=== PATIENT | male | born 1955 | race Caucasian/White ===

== ENCOUNTER → 2018-03-27 09:19 | Outpatient (CLI) | payer OTHER, SELFPAY ==
[2018-03-27 11:21] LABS: Cholesterol 169 mg/dL (140-199); HDL Cholesterol 55 mg/dL (40-60); LDL Cholesterol Calculated 84 mg/dL (<100); Triglycerides 148 mg/dL (35-150)
== END ==
PROVIDERS: Family Provider Internal Medicine; PCP Internal Medicine; Visit Provider Internal Medicine
DX: E78.00 Pure hypercholesterolemia, unspecified (principal); I10 Essential (primary) hypertension
CPT/HCPCS: 36415; 80061

== ENCOUNTER → 2018-04-17 11:21 | Outpatient (CLI) | payer OTHER, SELFPAY ==
[2018-04-17 13:07] LABS: HEMOLYSIS < 15 (0-50); Magnesium 2.1 mg/dL (1.6-2.3); Potassium 5.2 mmol/L (3.4-5.1)
[2018-04-17 13:39] LABS: Thyroid Stimulating Hormone 1.12 uIU/mL (0.47-4.68)
== END ==
PROVIDERS: PCP Internal Medicine; Visit Provider Internal Medicine
DX: I48.91 Unspecified atrial fibrillation (principal)
CPT/HCPCS: 36415; 83735; 84132; 84443

== ENCOUNTER → 2018-04-18 08:08 | Outpatient (CLI) | payer OTHER, SELFPAY ==
--- NOTE | 2018-04-18 | DI.ECHO.S_ITS ---
[facility] +---------+ : : [address] : [address] : : : : [id number] : : : : Phone: [phone]+ Echocardiogram Report + + :Name: AKBAR EDGAR Study Date: 04/18/2018 Height: 72 in : :[facility] Weight: 236 lb : : Gender: Male BSA: 2.3 m2 : :: 1955 Age: 62 yrs BP: 112/68 mmHg: :Reason For Study: Atrial fibrillation : : Performed By: Keli Vick : :Referring: INNA CARR : + + Interpretation Summary The left ventricle is normal in size. Left ventricular systolic function is normal without focal wall motion abnormalities. The ejection fraction is estimated to be 55-60%. Diastolic function could not be accurately assessed due to atrial fibrillation. The right ventricle grossly appears normal in size with probable normal systolic function. The right ventricular systolic pressure is estimated at 24 mmHg assuming a right atrial pressure of 3 mm Hg. The left atrium is moderately dilated. Right atrial size is normal. There is mild aortic regurgitation. There is no other significant valvular heart disease. The ascending aorta is mildly enlarged. Procedure: A two-dimensional transthoracic echocardiogram with color flow and Doppler was performed. The study quality was technically adequate. There is no prior echocardiogram noted for this patient. The patient was in atrial fibrillation with heart rates between 55-71 bpm during the exam. Left Ventricle: The left ventricle is normal in size. There is normal left ventricular wall thickness. Left ventricular systolic function is normal without focal wall motion abnormalities. The ejection fraction is estimated to be 55-60%. Diastolic function could not be accurately assessed due to atrial fibrillation. Right Ventricle: The right ventricle grossly appears normal in size with probable normal systolic function. Atria: The left atrium is moderately dilated. Right atrial size is normal. The interatrial septum is intact with no evidence for an atrial septal defect. Mitral Valve: The mitral valve is grossly normal. There is trace mitral regurgitation. Aortic Valve: The aortic valve opens well. There is no aortic valve stenosis. There is mild aortic regurgitation. Tricuspid Valve: The tricuspid valve is normal in structure and function. There is trace tricuspid regurgitation. The right ventricular systolic pressure is estimated at 24 mmHg assuming a right atrial pressure of 3 mm Hg. Pulmonic Valve: The pulmonic valve is not well visualized. There is a trace or physiologic amount of pulmonic regurgitation. There is no other significant valvular heart disease. Great Vessels: The aortic root is normal size. The ascending aorta is mildly enlarged. The aortic arch is normal in size. The IVC is of normal diameter and collapses greater than 50% with a sniff. This suggests a low right atrial pressure of 3 mm Hg. Pericardium/ Pleura There is no pericardial effusion. There is no pleural effusion. MMode/2D Measurements & Calculations LVIDd: 5.0 cm Ao root diam: 3.6 cm LVIDs: 3.4 cm Aortic Jxn: 2.6 cm FS: 30.6 % asc Aorta Diam: 3.8 cm IVSd: 0.92 cm Ao Arch Diam (Prox Trans): 3.1 cm LVPWd: 0.85 cm LV bowles. diameter/BSA (cm/m^2): 2.2 LV sys. diameter/BSA (cm/m^2): 1.5 LA dimension: 4.5 cm RA long axis: 5.5 cm LA A2 area: 25.8 cm2 RA area: 20.2 cm2 LA A4 area: 28.5 cm2 RA vol: 63.0 ml LA length (vol): 5.8 cm RA : 27.6 ml/m2 LA vol: 106.9 ml IVC diam: 1.6 cm LA vol index: 46.8 ml/m2 RVDd major: 5.6 cm RVD1 (basal): 4.0 cm RVD2 (mid): 3.4 cm Doppler Measurements & Calculations Ao V2 max: 119.0 cm/sec AI P1/2t: 677.6 msec Ao V2 mean: 73.4 cm/sec AI dec slope: 145.8 cm/sec2 Ao max P.7 mmHg Ao mean P.6 mmHg Ao V2 VTI: 24.4 cm Med Peak E' Alexis: 8.2 cm/sec TR max alexis: 231.0 cm/sec Lat Peak E' Alxeis: 12.8 cm/sec TR max P.3 mmHg MV P1/2t: 57.9 msec PA V2 max: 69.8 cm/sec PA V2 mean: 48.4 cm/sec PA mean P.1 mmHg PA Accel Time: 0.13 sec MV V2 mean: 42.3 cm/sec MV P1/2t max alexis: 89.5 cm/sec MV mean P.0 mmHg MVA(P1/2t): 3.8 cm2 MV V2 VTI: 12.2 cm Reading Physician:KATHY
== END ==
PROVIDERS: PCP Internal Medicine; Visit Provider Internal Medicine
DX: I35.1 Nonrheumatic aortic (valve) insufficiency (principal); I48.91 Unspecified atrial fibrillation
CPT/HCPCS: 93306

== ENCOUNTER → 2018-07-20 08:07 | Outpatient (CLI) | payer OTHER, SELFPAY ==
--- NOTE | 2018-07-20 | DI.NM.S_ITS ---
PROCEDURE: NM GILBERTO PERF SPECT REST & STR Rest and exercise myocardial perfusion SPECT with gated imaging and ejection fraction RADIOPHARMACEUTICAL: 25.4 mCi Tc-99m sestamibi IV at rest and 25.3 mCi Tc-99m sestamibi IV at peak exercise. A two day-protocol was performed. INDICATIONS: atrial fibrillation TECHNIQUE: Radiopharmaceutical was injected at peak stress test, and also at rest. SPECT images were obtained. SPECT myocardial perfusion images were displayed in short axis, horizontal long axis, and vertical long axis views. Gated images were reviewed using Playcez software. COMPARISON: None. CARDIAC STRESS: A standard Aditya treadmill exercise tolerance test was performed by the patient under the supervision of an attending staff. The patient exercised for 5 minutes and 24 seconds; functional aerobic impairment (BETTINA) is +35%. Hemodynamic data: There is normal blood pressure and heart rate response to exercise stress. Patient achieved 110% of maximum predicted heart rate at peak exercise. Symptoms: Patient denied chest pain during exercise. EKG: Atrial fibrillation present throughout the study. No diagnostic EKG changes of ischemia. FINDINGS: Raw data: There is good myocardial labeling by radiotracer. No significant motion artifacts. Left ventricle function: Gated images demonstrate normal left ventricle wall thickening. No segmental wall motion abnormality. No transient ischemic dilation; TID is 0.94 (normal less than 1.3). The left ventricle resting end-diastolic volume is 149 mL. Left ventricle stress ejection fraction is 60%; normal values are above 45%. Myocardial perfusion: There is a moderately intense reversible defect in the distal anterior wall consistent with ischemia in the LAD territory. There is a fixed mildly intense defect in the inferior wall that persists on prone imaging, consistent with prior infarction. SSS 9, SRS 3. IMPRESSION: Abnormal stress test consistent with ischemia in the distal anterior wall and infarction in the inferior wall. 1) Abnormal perfusion images. There is a moderately intense reversible defect in the distal anterior wall consistent with ischemia in the LAD territory. There is a fixed mildly intense defect in the inferior wall that persists on prone imaging, consistent with prior infarction. SSS 9, SRS 3. 2) Normal left ventricular size, wall motion, and systolic function (EF 60%). 3) No ECG evidence of ischemia. Atrial fibrillation present througout the study. 4) No angina during the study. 5) Moderately reduced exercise tolerance (7.0 METs, BETTINA +35%). Target heart rate achieved. 6) No prior nuclear stress test available for comparison. Dictated by: Dusty Clay MD on 07/21/2018 at 13:23 Approved by: Dusty Clay MD on 07/21/2018 at 13:29
--- NOTE | 2018-07-20 09:21 | PM.TREADMILL ---
Cardiac Stress Test Report Referral & Results Date Patient Seen: 07/20/18 Time Patient Seen: 09:21 Requesting provider: Abelardo Garibay Indication: Atrial fibrillation Rest ECG: AFib, with controlled ventricular response, otherwise unremarkable Procedure Note: Today following both written and verbal informed consent the patient was exercised according to a standard Aditya protocol patient went for a total of 5 min 24 sec achieving a maximum heart rate of 148 maximum systolic blood pressure of 180. This is approximately 7.0 METS. Exercise was terminated at this point because of targets having been met. Patient was also given Cardiolite through a previously started Hep-Lock IV by the nuclear medicine pet ct technologist approximately 1 minute prior to the cessation of exercise. Due to technical difficulties it was completely impossible to follow ST segments or heart rate during activity due to severe motion artifact. However upon immediate cessation of activity there was no evidence of ST segment change. Maximum heart rate was calculated at that point at 148 No dysrhythmias were identified Functional aerobic impairment rated 30% in sedentary scale although patient was stopped early on the treadmill because of having met heart rate and blood pressure targets he probably could continued longer There was a rapid reduction heart rate with cessation of activity quickly achieving a heart rate of less than 100 less than 90 sec into recovery Impression: No clear evidence of ischemia although limited somewhat for technical reasons as above Perfusion imaging to be reported separately Probably somewhat limited exercise capacity as well Please note: Actual ECG tracings can be found in the PACS system.
== END ==
PROVIDERS: PCP Internal Medicine; Visit Provider Internal Medicine
DX: I48.91 Unspecified atrial fibrillation (principal)
CPT/HCPCS: 78452; 93016; 93017; 93018; A9502

== ENCOUNTER → 2018-08-31 09:02 | Outpatient (CLI) | payer OTHER, SELFPAY ==
[2018-08-31 10:41] LABS: Alanine Aminotransferase 56 IU/L (21-72); Aspartate Aminotransferase 40 IU/L (17-59); Cholesterol 82 mg/dL (140-199); HDL Cholesterol 34 mg/dL (40-60); LDL Cholesterol Calculated 32 mg/dL (<100); Triglycerides 79 mg/dL (35-150)
== END ==
PROVIDERS: PCP Internal Medicine; Visit Provider Internal Medicine
DX: E78.00 Pure hypercholesterolemia, unspecified (principal)
CPT/HCPCS: 36415; 80061; 84450; 84460

== ENCOUNTER → 2018-12-14 12:29 | Outpatient (CLI) | payer OTHER, SELFPAY ==
[2018-12-14 13:44] LABS: Hematocrit 43.5 % (41-53); Hemoglobin 14.6 g/dL (13.5-17.5)
== END ==
PROVIDERS: PCP Internal Medicine; Visit Provider Physician Assistant
DX: I48.91 Unspecified atrial fibrillation (principal)
CPT/HCPCS: 36415; 85014; 85018

== ENCOUNTER → 2018-12-21 13:20 | Outpatient (CLI) | payer OTHER, SELFPAY ==
[2018-12-21 13:56] LABS: Hematocrit 45.1 % (41-53); Hemoglobin 15.2 g/dL (13.5-17.5)
== END ==
PROVIDERS: PCP Internal Medicine; Visit Provider Physician Assistant
DX: I48.91 Unspecified atrial fibrillation (principal)
CPT/HCPCS: 36415; 85014; 85018

== ENCOUNTER → 2019-01-01 11:53 | Outpatient (CLI) | payer OTHER, SELFPAY ==
[2019-01-01 13:57] LABS: Blood Urea Nitrogen 16 mg/dL (9-20); Calcium 9.5 mg/dL (8.4-10.2); Carbon Dioxide 29 mmol/L (22-32); Chloride 99 mmol/L (98-107); Estimated Glomerular Filt Rate > 60.0 mL/min (>60); Glucose 84 mg/dL (80-110); HEMOLYSIS < 15 (0-50); Potassium 4.9 mmol/L (3.4-5.1); Sodium 139 mmol/L (137-145)
== END ==
PROVIDERS: PCP Internal Medicine; Visit Provider Physician Assistant
DX: I48.0 Paroxysmal atrial fibrillation (principal)
CPT/HCPCS: 36415; 80048

== ENCOUNTER → 2019-01-16 09:00 | Outpatient (CLI) | payer OTHER, SELFPAY ==
[2019-01-16 09:50] LABS: Add Manual Diff / Slide Review NO; Basophils Absolute Auto 0 /uL (0-100); Basophils Percent Auto 0.3 % (0-2); Eosinophils Absolute Auto 100 /uL (0-450); Eosinophils Percent Auto 1.2 % (2-4); Hematocrit 42.6 % (41-53); Hemoglobin 14.3 g/dL (13.5-17.5); Lymphocytes Absolute Auto 2500 /uL (1100-4500); Lymphocytes Percent Auto 25.2 % (25-40); Mean Corpuscular HGB Conc 33.7 % (30-36); Mean Corpuscular Hemoglobin 32.1 PG (26-34); Mean Corpuscular Volume 95.3 fL (80-100); Monocytes Absolute Auto 800 /uL (0-900); Monocytes Percent Auto 8.1 % (3-14); Neutrophils Absolute Auto 6500 /uL (1500-7000); Neutrophils Percent Auto 65.2 % (50-75); Platelet Count 326 X10^3/uL (150-400); Red Blood Cell Count 4.47 X10^6/uL (4.5-5.9); Red Cell Distribution Width 13.2 % (11.6-14.8)
[2019-01-16 10:24] LABS: HEMOLYSIS < 15 (0-50); Iron 61 ug/dL (49-181)
[2019-01-16 10:36] LABS: Percent Iron Saturation 17 % (20-50); Total Iron Binding Capacity 354 ug/dL (261-462); Transferrin 249 mg/dL (206-381)
[2019-01-16 10:57] LABS: Prostate Specific Antigen Scrn 1.82 ng/mL (0.1-4.0)
== END ==
PROVIDERS: PCP Internal Medicine; Visit Provider Internal Medicine
DX: E78.00 Pure hypercholesterolemia, unspecified (principal); I48.91 Unspecified atrial fibrillation; D64.9 Anemia, unspecified
CPT/HCPCS: 36415; 82728; 83540; 83550; 85025; G0103

== ENCOUNTER → 2019-05-14 08:35 | Outpatient (CLI) | payer OTHER, SELFPAY ==
[2019-05-14 09:23] LABS: Add Manual Diff / Slide Review NO; Basophils Absolute Auto 0 /uL (0-100); Basophils Percent Auto 0.6 % (0-2); Eosinophils Absolute Auto 100 /uL (0-450); Eosinophils Percent Auto 2.2 % (2-4); Hematocrit 42.7 % (41-53); Hemoglobin 14.5 g/dL (13.5-17.5); Lymphocytes Absolute Auto 1500 /uL (1100-4500); Lymphocytes Percent Auto 23.7 % (25-40); Mean Corpuscular Hemoglobin 32.2 PG (26-34); Mean Corpuscular Volume 94.8 fL (80-100); Monocytes Absolute Auto 500 /uL (0-900); Neutrophils Absolute Auto 4400 /uL (1500-7000); Neutrophils Percent Auto 66.5 % (50-75); Platelet Count 271 X10^3/uL (150-400); Red Cell Distribution Width 14.1 % (11.6-14.8); White Blood Cell Count 6.5 X10^3/uL (4.5-11.0)
[2019-05-14 09:56] LABS: HEMOLYSIS < 15 (0-50); Iron 134 ug/dL (49-181)
[2019-05-14 10:06] LABS: Percent Iron Saturation 40 % (20-50); Total Iron Binding Capacity 333 ug/dL (261-462); Transferrin 276 mg/dL (206-381)
[2019-05-14 10:25] LABS: Prostate Specific Antigen Scrn 1.51 ng/mL (0.1-4.0)
[2019-05-14 10:29] LABS: Ferritin 49.6 ng/mL (17.9-464)
== END ==
PROVIDERS: PCP Internal Medicine; Visit Provider Internal Medicine
DX: E78.00 Pure hypercholesterolemia, unspecified (principal); I48.91 Unspecified atrial fibrillation; D64.9 Anemia, unspecified
CPT/HCPCS: 36415; 82728; 83540; 83550; 85025; G0103

== ENCOUNTER → 2019-10-04 15:13 | Outpatient (ROUT) | payer OTHER, SELFPAY ==
[2019-10-04 15:46] LABS: Alanine Aminotransferase 72 IU/L (<50); Albumin 4.4 g/dL (3.5-5.0); Albumin Globulin Ratio 1.6 (1.0-2.8); Alkaline Phosphatase 94 U/L (38-126); Aspartate Aminotransferase 43 IU/L (17-59); Bilirubin Total 0.8 mg/dL (0.2-1.3); Blood Urea Nitrogen 14 mg/dL (9-20); Calcium 9.3 mg/dL (8.4-10.2); Carbon Dioxide 30 mmol/L (22-32); Chloride 101 mmol/L (98-107); Cholesterol 152 mg/dL (140-199); Estimated Glomerular Filt Rate > 60.0 mL/min (>60); Globulin 2.7 g/dL (1.7-4.1); Glucose 104 mg/dL (80-110); HDL Cholesterol 58 mg/dL (40-60); HEMOLYSIS < 15 (0-50); LDL Cholesterol Calculated 69 mg/dL (<100); Potassium 4.2 mmol/L (3.4-5.1); Sodium 139 mmol/L (137-145); Total Protein 7.1 g/dL (6.3-8.2); Triglycerides 126 mg/dL (35-150)
== END ==
PROVIDERS: PCP Internal Medicine; Visit Provider Internal Medicine
DX: I10 Essential (primary) hypertension (principal); E78.00 Pure hypercholesterolemia, unspecified
CPT/HCPCS: 80053; 80061

== ENCOUNTER → 2020-03-19 09:27 | Outpatient (CLI) | payer OTHER, SELFPAY ==
[2020-03-19 10:58] LABS: Alanine Aminotransferase 45 IU/L (<50); Albumin 4.4 g/dL (3.5-5.0); Albumin Globulin Ratio 1.8 (1.0-2.8); Alkaline Phosphatase 92 U/L (38-126); Aspartate Aminotransferase 44 IU/L (17-59); Bilirubin Total 0.7 mg/dL (0.2-1.3); Blood Urea Nitrogen 13 mg/dL (9-20); Calcium 9.5 mg/dL (8.4-10.2); Carbon Dioxide 29 mmol/L (22-32); Chloride 102 mmol/L (98-107); Cholesterol 93 mg/dL (140-199); Estimated Glomerular Filt Rate > 60.0 mL/min (>60); Globulin 2.5 g/dL (1.7-4.1); Glucose 102 mg/dL (80-110); HDL Cholesterol 33 mg/dL (40-60); HEMOLYSIS < 15 (0-50); LDL Cholesterol Calculated 42 mg/dL (<100); Potassium 4.3 mmol/L (3.4-5.1); Sodium 139 mmol/L (137-145); Total Protein 6.9 g/dL (6.3-8.2); Triglycerides 91 mg/dL (35-150)
== END ==
PROVIDERS: PCP Internal Medicine; Referring Provider Internal Medicine; Visit Provider Internal Medicine
DX: I10 Essential (primary) hypertension (principal)
CPT/HCPCS: 36415; 80053; 80061

== ENCOUNTER → 2020-04-01 09:02 | Outpatient (CLI) | payer OTHER, SELFPAY ==
[2020-04-01 10:14] LABS: Add Manual Diff / Slide Review NO; Basophils Absolute Auto 0 /uL (0-100); Basophils Percent Auto 0.4 % (0-2); Eosinophils Absolute Auto 100 /uL (0-450); Eosinophils Percent Auto 2.5 % (2-4); Hematocrit 41.2 % (41-53); Hemoglobin 14.3 g/dL (13.5-17.5); Lymphocytes Absolute Auto 1900 /uL (1100-4500); Lymphocytes Percent Auto 32.3 % (25-40); Mean Corpuscular HGB Conc 34.6 % (30-36); Mean Corpuscular Hemoglobin 32.4 PG (26-34); Mean Corpuscular Volume 93.7 fL (80-100); Monocytes Absolute Auto 300 /uL (0-900); Monocytes Percent Auto 4.6 % (3-14); Neutrophils Absolute Auto 3600 /uL (1500-7000); Neutrophils Percent Auto 60.2 % (50-75); Platelet Count 263 X10^3/uL (150-400); Red Blood Cell Count 4.39 X10^6/uL (4.5-5.9)
[2020-04-01 10:15] LABS: HEMOLYSIS < 15 (0-50); Iron 91 ug/dL (49-181)
[2020-04-01 10:26] LABS: Percent Iron Saturation 30 % (20-50); Total Iron Binding Capacity 299 ug/dL (261-462); Transferrin 212 mg/dL (206-381)
[2020-04-01 10:52] LABS: Ferritin 52 ng/mL (18-464)
== END ==
PROVIDERS: PCP Internal Medicine; Referring Provider Internal Medicine; Visit Provider Internal Medicine
DX: D64.9 Anemia, unspecified (principal)
CPT/HCPCS: 36415; 82728; 83540; 83550; 85025

== ENCOUNTER → 2020-04-21 13:53 | Outpatient (CLI) | payer OTHER, SELFPAY ==
[2020-04-21 15:57] LABS: TSH w/ Reflex to FT4 0.18 uIU/mL (0.47-4.68)
[2020-04-21 16:16] LABS: Vitamin B12 347 pg/mL (239-931)
[2020-04-21 16:23] LABS: Free T4, Direct Thyroxine 0.98 ng/dL (0.78-2.19)
== END ==
PROVIDERS: PCP Internal Medicine; Referring Provider Internal Medicine; Visit Provider Internal Medicine
DX: R53.82 Chronic fatigue, unspecified (principal)
CPT/HCPCS: 36415; 82607; 84439; 84443

== ENCOUNTER → 2020-07-10 13:04 | Outpatient (CLI) | payer OTHER, SELFPAY ==
[2020-07-10 13:47] LABS: Add Manual Diff / Slide Review NO; Basophils Absolute Auto 0 /uL (0-100); Basophils Percent Auto 0.6 % (0-2); Eosinophils Absolute Auto 100 /uL (0-450); Eosinophils Percent Auto 1.1 % (2-4); Hematocrit 45.1 % (41-53); Lymphocytes Absolute Auto 1700 /uL (1100-4500); Mean Corpuscular HGB Conc 33.2 % (30-36); Mean Corpuscular Volume 93.5 fL (80-100); Monocytes Absolute Auto 400 /uL (0-900); Monocytes Percent Auto 5.7 % (3-14); Neutrophils Absolute Auto 5000 /uL (1500-7000); Neutrophils Percent Auto 68.6 % (50-75); Platelet Count 249 X10^3/uL (150-400); Red Blood Cell Count 4.82 X10^6/uL (4.5-5.9); Red Cell Distribution Width 13.5 % (11.6-14.8); White Blood Cell Count 7.2 X10^3/uL (4.5-11.0)
[2020-07-10 14:04] LABS: HEMOLYSIS < 15 (0-50); Iron 130 ug/dL (49-181)
[2020-07-10 14:18] LABS: Percent Iron Saturation 37 % (20-50); Total Iron Binding Capacity 356 ug/dL (261-462); Transferrin 258 mg/dL (206-381)
== END ==
PROVIDERS: PCP Internal Medicine; Referring Provider Internal Medicine; Visit Provider Internal Medicine
DX: D64.9 Anemia, unspecified (principal)
CPT/HCPCS: 36415; 83540; 83550; 85025

== ENCOUNTER → 2020-07-18 10:49 | Outpatient (CLI) | payer OTHER, SELFPAY ==
[2020-07-18 12:11] LABS: Add Manual Diff / Slide Review NO; Basophils Absolute Auto 0 /uL (0-100); Basophils Percent Auto 0.4 % (0-2); Eosinophils Absolute Auto 100 /uL (0-450); Eosinophils Percent Auto 1.5 % (2-4); Hematocrit 44.8 % (41-53); Hemoglobin 14.9 g/dL (13.5-17.5); Lymphocytes Absolute Auto 1700 /uL (1100-4500); Lymphocytes Percent Auto 25.4 % (25-40); Mean Corpuscular HGB Conc 33.2 % (30-36); Mean Corpuscular Hemoglobin 30.9 PG (26-34); Mean Corpuscular Volume 93.1 fL (80-100); Monocytes Absolute Auto 500 /uL (0-900); Neutrophils Absolute Auto 4500 /uL (1500-7000); Neutrophils Percent Auto 65.7 % (50-75); Platelet Count 266 X10^3/uL (150-400); Red Blood Cell Count 4.81 X10^6/uL (4.5-5.9); Red Cell Distribution Width 13.8 % (11.6-14.8); White Blood Cell Count 6.8 X10^3/uL (4.5-11.0)
[2020-07-18 12:51] LABS: HEMOLYSIS 20 (0-50); Iron 123 ug/dL (49-181)
[2020-07-18 13:02] LABS: Percent Iron Saturation 35 % (20-50); Total Iron Binding Capacity 348 ug/dL (261-462); Transferrin 249 mg/dL (206-381)
[2020-07-18 13:24] LABS: TSH w/ Reflex to FT4 0.57 uIU/mL (0.47-4.68)
[2020-07-18 13:27] LABS: Ferritin 55 ng/mL (18-464)
[2020-07-18 13:42] LABS: Vitamin B12 690 pg/mL (239-931)
== END ==
PROVIDERS: PCP Internal Medicine; Referring Provider Internal Medicine; Visit Provider Internal Medicine
DX: D64.9 Anemia, unspecified (principal); R53.82 Chronic fatigue, unspecified
CPT/HCPCS: 36415; 82607; 82728; 83540; 83550; 84443; 85025

== ENCOUNTER → 2020-07-25 11:00 | Outpatient (CLI) | payer OTHER, SELFPAY ==
[2020-07-25 12:50] LABS: Cholesterol 100 mg/dL (140-199); HDL Cholesterol 31 mg/dL (40-60); LDL Cholesterol Calculated 48 mg/dL (<100); Triglycerides 106 mg/dL (35-150)
== END ==
PROVIDERS: PCP Internal Medicine; Referring Provider Internal Medicine; Visit Provider Internal Medicine
DX: E78.5 Hyperlipidemia, unspecified (principal)
CPT/HCPCS: 36415; 80061

== ENCOUNTER → 2021-01-02 12:39 | Outpatient (CLI) | payer OTHER, SELFPAY ==
[2021-01-02] MEDS: COVID-19 VACC #1, MRNA(MOD) 100 MCG/0.5 ML VIAL IM (12:43)
== END ==
PROVIDERS: PCP Internal Medicine; Visit Provider Internal Medicine
DX: Z23 Encounter for immunization (principal)
CPT/HCPCS: 0011A; 91301

== ENCOUNTER → 2021-01-30 11:18 | Outpatient (CLI) | payer OTHER, SELFPAY ==
[2021-01-30] MEDS: COVID-19 VACC #2, MRNA(MOD) 100 MCG/0.5 ML VIAL IM (11:23)
== END ==
PROVIDERS: PCP Internal Medicine; Visit Provider Internal Medicine
DX: Z23 Encounter for immunization (principal)
CPT/HCPCS: 0012A; 91301

== ENCOUNTER → 2021-10-29 12:43 | Outpatient (CLI) | payer MEDICARE, OTHER, SELFPAY ==
--- NOTE | 2021-10-29 | DI.US.S_ITS ---
PROCEDURE: US SCROTUM INDICATIONS: RIGHT TESTICULAR PAIN TECHNIQUE: Real-time scanning was performed of the scrotum and testicles, with image documentation. Color and pulse Doppler interrogation was performed of both testicles. COMPARISON: None. FINDINGS: Right: Testicle is normal in size at 4.6 x 3.3 x 2.8 cm, and homogenous in echotexture. Epididymis is normal in overall size and morphology. No varicoceles. Moderate hydrocele. Overlying scrotal skin is normal in thickness. Left: Testicle is normal in size at 4.4 x 3.2 x 2.7 cm, and homogeneous in echotexture. Septated epididymal head cyst measuring 7 mm. Epididymis is otherwise normal in overall size and morphology. No varicocele. Multiple nonvascular scrotal septations at the inferior aspect of the left testis. Overlying scrotal skin is normal in thickness. Doppler: Color and pulse Doppler demonstrate normal and symmetric arterial flow in both testicles. IMPRESSION: 1. Right hydrocele. 2. Multiple nonvascular septations adjacent to the left testis. 3. Left epididymal head cyst. 4. No evidence of torsion at the time of the examination. Dictated by: Maritza Sherman M.D. on 10/29/2021 at 15:20 Approved by: Maritza Sherman M.D. on 10/29/2021 at 16:57
== END ==
PROVIDERS: PCP Internal Medicine; Referring Provider Physician Assistant Medical; Visit Provider Physician Assistant Medical
DX: N50.3 Cyst of epididymis (principal); N50.811 Right testicular pain; N43.3 Hydrocele, unspecified; N50.89 Other specified disorders of the male genital organs
CPT/HCPCS: 76870

== ENCOUNTER 2023-06-19 10:41 | Emergency (ER) | payer MEDICARE, OTHER, SELFPAY ==
[2023-06-19 10:48] VITALS: BP 140/80; PULSE 85; RESP 16; TEMP 36.7; O2SAT 99; BMI 33.0
[2023-06-19 12:00] VITALS: BP 134/70; PULSE 70; RESP 14; O2SAT 99
--- NOTE | 2023-06-19 12:11 | ED_ITS ---
HPI - Extremity Problem General Chief complaint: Extremity Problem,Nontraumatic Stated complaint: LT calf poss blood clot Time Seen by Provider: 06/19/23 11:59 Source: patient Mode of arrival: Ambulatory History of Present Illness HPI Narrative: 67-year-old male who is here for evaluation of a left calf injury. He states that approximately 2 weeks ago he had a fairly sudden incident where he thinks that he hurt his calf. He potentially felt a pop. Has had swelling and discomfort. He is on Coumadin for atrial fibrillation. His last INR was 2.9. He has been ambulatory. He has tried to rub some CBD oil over the area. The pain is on the back of his leg. It does hurt when he points his toe up. No prior injuries. Related Data Home Medications Medication Instructions Recorded Confirmed aluminum hydrox-magnesium carb 160 2 tab PO BID PRN Gastric Reflux 06/19/23 06/19/23 mg-105 mg chewable tablet atorvastatin 10 mg tablet 10 mg PO DAILY 06/19/23 06/19/23 calcium carb,cit ER 600 mg-vit D3 1 tab PO DAILY 06/19/23 06/19/23 12.5 mcg (500 unit) tablet,ext.rel cetirizine 10 mg capsule 10 mg PO DAILY 06/19/23 06/19/23 cholecalciferol (vitamin D3) 25 25 mcg PO DAILY 06/19/23 06/19/23 mcg (1,000 unit) tablet cyanocobalamin (vitamin B-12) 1,000 mcg PO DAILY 06/19/23 06/19/23 1,000 mcg capsule fluticasone propionate 50 1 spray intranasal BID 06/19/23 06/19/23 mcg/actuation nasal spray,suspension ipratropium bromide 42 mcg (0.06 2 spray intranasal TID-QID PRN 06/19/23 06/19/23 %) nasal spray allergies ketoconazole 2 % shampoo 1 applic topical 3XW 06/19/23 06/19/23 losartan 25 mg tablet 12.5 mg PO DAILY 06/19/23 06/19/23 methimazole 5 mg tablet 2.5 mg PO DAILY 06/19/23 06/19/23 metronidazole 0.75 % lotion 1 applic topical DAILY 06/19/23 06/19/23 pantoprazole 40 mg tablet,delayed 40 mg PO BID 06/19/23 06/19/23 release paroxetine HCl 30 mg tablet 30 mg PO DAILY 06/19/23 06/19/23 trazodone 50 mg tablet 75 - 100 mg PO ONCE PM insomnia 06/19/23 06/19/23 trospium 20 mg tablet 20 mg PO BID 06/19/23 06/19/23 urea 40 % topical cream See Rx Instructions .Route .COMPLEX 06/19/23 06/19/23 warfarin 5 mg tablet 5 mg PO DAILY 06/19/23 06/19/23 Allergies Allergy/AdvReac Type Severity Reaction Status Date / Time amoxicillin [From AUGMENTIN] Allergy Unknown Verified 06/19/23 10:52 clavulanic acid Allergy Unknown Verified 06/19/23 10:52 [From AUGMENTIN] Penicillins Allergy Unknown Verified 06/19/23 10:52 Review of Systems Constitutional Constitutional: Reports system reviewed and no additional complaints, except as documented Musculoskeletal Musculoskeletal: Reports system reviewed and no additional complaints, except as documented Integumentary/Breasts Skin/Breast: Reports system reviewed and no additional complaints, except as documented Neurologic Neurologic: Reports system reviewed and no additional complaints, except as documented Patient History Social History Smoking Status: Never smoker Smoking Status: Never smoker alcohol intake frequency: 0-2 drinks per day Substance Use Type: does not use Exam Initial Vital Signs Initial Vital Signs: Vital Signs Temperature 98.1 F 06/19/23 10:48 Pulse Rate 85 06/19/23 10:48 Respiratory Rate 16 06/19/23 10:48 Blood Pressure 140/80 06/19/23 10:48 Pulse Oximetry 99 06/19/23 10:48 Oxygen Delivery Method Room Air 06/19/23 10:48 Skin General: no rashes or lesions noted Neuro General: patient alert, patient awake, patient oriented x3 and moves all extremities Extrem Other: He is no hamstring tenderness. He is some tenderness in the anterior portion of his lower extremity. He does have swelling. He has discomfort on the posterior aspect. He is discomfort with dorsiflexing his foot. Course Vital Signs Vital signs: Vital Signs - 8 hr 06/19/23 10:48 Temperature 98.1 F Pulse Rate 85 Respiratory Rate 16 Blood Pressure 140/80 Pulse Oximetry 99 Oxygen Delivery Method Room Air MDM - Extremity (Nontraumatic) MDM Narrative Medical decision making narrative: I have low suspicion that this is a DVT given the mechanism of injury and his exam today. I do feel that we can hold on any radiologic studies. No fevers. I do suspect that this is a calf muscle injury. We did discuss conservative measures and for him to talk with his primary provider to discuss the indications for physical therapy. He was given return precautions. He expressed understanding and agreement. Discharge Plan Departure Patient Disposition: Home Clinical Impression: Strain of left calf muscle Instructions: DI for Calf Muscle Strain Activity Restrictions/Additional Instructions: I do recommend that you talk with your primary doctor about a follow-up in the indications for a referral to see Physical therapy. I recommend that you also do light stretching. Return to the emergency department for new or worsening symptoms. Prescriptions: No Action ketoconazole 2 % Shampoo 1 applic TOPICAL 3XW trazodone 50 mg tablet 75 - 100 mg PO ONCE PM atorvastatin 10 mg tablet 10 mg PO DAILY urea 40 % cream See Rx Instructions .ROUTE .COMPLEX Rx Instructions: apply topically to feet twice a day until clear then 2-3 times metronidazole 0.75 % Lotion 1 applic TOPICAL DAILY paroxetine HCl 30 mg tablet 30 mg PO DAILY pantoprazole 40 mg tablet,delayed release (DR/EC) 40 mg PO BID warfarin 5 mg Tablet 5 mg PO DAILY losartan 25 mg tablet 12.5 mg PO DAILY methimazole 5 mg tablet 2.5 mg PO DAILY Gaviscon 160-105 mg Tablet,Chewable 2 tab PO BID PRN (Reason: Gastric Reflux) ipratropium bromide 42 mcg (0.06 %) [place],Non-Aerosol 2 spray INTRANASAL TID-QID PRN (Reason: allergies) Rx Instructions: administer into each nostril fluticasone propionate 50 mcg/actuation [place],Suspension 1 spray INTRANASAL BID Rx Instructions: administer into each nostril trospium 20 mg tablet 20 mg PO BID cholecalciferol (vitamin D3) 25 mcg (1,000 unit) Tablet 25 mcg PO DAILY cetirizine 10 mg Capsule 10 mg PO DAILY calcium carb and citrate-vitD3 600 mg-12.5 mcg (500 unit) Tablet Extended Release 1 tab PO DAILY cyanocobalamin (vitamin B-12) 1,000 mcg Capsule 1,000 mcg PO DAILY Referrals: Sumeet Saleem MD [Primary Care Provider] - Stand Alone Forms: Patient Portal/API
== END 2023-06-19 12:28 | disposition home or self-care (01) ==
PROVIDERS: Emergency Provider Emergency Medicine; PCP Internal Medicine
DX: S86.912A Strain of unspecified muscle(s) and tendon(s) at lower leg level, left leg, initial encounter (principal); X58.XXXA Exposure to other specified factors, initial encounter; Z79.01 Long term (current) use of anticoagulants
CPT/HCPCS: 99281

== ENCOUNTER → 2024-01-23 11:00 | Outpatient (CLI) | payer MEDICARE, OTHER, SELFPAY ==
--- NOTE | 2024-01-23 11:23 | DI.RAD.S_ITS ---
PROCEDURE: XR CHEST 2V INDICATIONS: Cough TECHNIQUE: 2 views of the chest were acquired. COMPARISON: None. FINDINGS: Surgical changes and devices: None. Lungs and pleura: Linear left basilar opacities likely atelectasis. No pleural effusions or pneumothorax. Mediastinum: Mediastinal contours are normal. Heart size is normal. Bones and chest wall: No suspicious bony abnormalities. Soft tissues appear unremarkable. IMPRESSION: No acute pulmonary process. Dictated by: Amelie Morris M.D. on 01/23/2024 at 17:03 Approved by: Amelie Morris M.D. on 01/23/2024 at 17:03
[2024-01-23 11:44] LABS: Influenza A - CEPHEID Flu A NEGATIVE (NEGATIVE); Influenza B - CEPHEID Flu B NEGATIVE (NEGATIVE); Respiratory Syncytial Virus Negative (Negative)
[2024-01-23 11:45] LABS: COVID-19 CEPHEID 4-PLEX PCR Negative (Negative)
== END ==
PROVIDERS: PCP Internal Medicine; Referring Provider Nurse Practitioner Family; Visit Provider Nurse Practitioner Family
DX: R05.1 Acute cough (principal); R05.9 Cough, unspecified
CPT/HCPCS: 0241U; 71046